=== PATIENT | female | born 1980 | race Caucasian/White ===

== ENCOUNTER 2021-02-07 08:08 | Outpatient (REF) | payer OTHER, SELFPAY ==
[2021-02-08 09:16] LABS: BV Int Neg Control Negative (Negative); BV Int Pos Control Positive (Positive)
[2021-02-08 09:28] LABS: CT PCR NOT DETECTED (Not Detect.); NG PCR NOT DETECTED (Not Detect.)
== END 2021-02-07 08:09 | disposition home or self-care (01) ==
LOC: HO.LAB 08:08
PROVIDERS: PCP Family Medicine; Visit Provider Advanced Practice Midwife
DX: Z01.419 Encounter for gynecological examination (general) (routine) without abnormal findings (principal); Z11.3 Encounter for screening for infections with a predominantly sexual mode of transmission; Z20.2 Contact with and (suspected) exposure to infections with a predominantly sexual mode of transmission; E66.9 Obesity, unspecified
CPT/HCPCS: 87480; 87491; 87510; 87591; 87660

== ENCOUNTER 2021-02-13 09:44 | Outpatient (REF) | payer OTHER, SELFPAY ==
[2021-02-13 11:43] LABS: Cholesterol 217 mg/dL; Glucose Fasting 83 mg/dL (60-99); HDL Cholesterol 59 mg/dL; LDL Cholesterol Calculated 145 mg/dl; Triglycerides 67 mg/dL
== END 2021-02-13 09:45 | disposition home or self-care (01) ==
LOC: HO.LAB 09:44
PROVIDERS: PCP Family Medicine; Visit Provider Family Medicine
DX: Z82.49 Family history of ischemic heart disease and other diseases of the circulatory system (principal)
CPT/HCPCS: 36415; 80061; 82947

== ENCOUNTER 2021-03-13 10:04 | Outpatient (REF) | payer OTHER, SELFPAY ==
--- NOTE | ~2021-03-13 | MM_ITS ---
EXAMINATION: MM SCREENING DIGITAL BREAST TOMOSYNTHESIS, BILATERAL CLINICAL INFORMATION: Screening. Asymptomatic. Age 40. No prior breast imaging. No known family history breast cancer. The lifetime risk of breast cancer based on the Tyrer-Cuzick Model is 13%. COMPARISON: None (current study represents initial baseline exam). TECHNIQUE: Digital breast tomosynthesis is performed in both the craniocaudal and mediolateral oblique views along with computer-aided detection (CAD). Synthesized 2D images are generated from the tomosynthesis. FINDINGS: There are scattered areas of fibroglandular density (ACR BI-RADS breast composition Category b). The left breast shows no mass or architectural abnormality. Neither breast shows abnormal calcifications. The bilateral axilla and skin contours are unremarkable. Right breast has subtle focal asymmetric density mid 8:00 position. Tomography may suggest oval contour, possibly a cyst. Patient will be recalled for additional imaging to fully characterize baseline appearance. MM/MM tomosynthesis screening BI IMPRESSION: 1. Right: Focal asymmetric density mid 8:00 position. 2. Left: No mammographic evidence of malignancy. ASSESSMENT: BI-RADS 0: Incomplete - Need Additional Imaging Evaluation RECOMMENDATION: 1. Additional views of the right breast for contours (3-D spot CC, 3-D spot ML). 2. Targeted ultrasound right breast. 3. Radiology department staff will contact the patient for additional imaging. This patient's information was entered into a reminder system with a target due date for their next mammogram.
== END 2021-03-13 10:05 | disposition home or self-care (01) ==
LOC: HO.MAMMO 10:04
PROVIDERS: PCP Family Medicine; Visit Provider Family Medicine
DX: Z12.31 Encounter for screening mammogram for malignant neoplasm of breast (principal)
CPT/HCPCS: 77063; 77067

== ENCOUNTER 2021-03-21 08:34 | Outpatient (REF) | payer OTHER, SELFPAY ==
--- NOTE | ~2021-03-21 | MM_ITS ---
EXAMINATION: MM DIAGNOSTIC DIGITAL BREAST TOMOSYNTHESIS, RIGHT US DIAGNOSTIC ULTRASOUND BREAST, RIGHT CLINICAL INFORMATION: Recall from new baseline exam for asymmetric density mid 8:00 right breast COMPARISON: Mammography: 03/13/2021 TECHNIQUE: Digital breast tomosynthesis is performed. 2D images are generated from the tomosynthesis. The following views are obtained: 3-D spot CC, 3-D spot ML Ultrasound right breast is targeted to the lower outer quadrant. Grayscale imaging and color Doppler are performed without and with harmonics. FINDINGS: There are scattered areas of fibroglandular density (ACR BI-RADS breast composition Category b). The additional views show no persistent asymmetric density or mass or architectural abnormality. Ultrasound demonstrates no cystic or solid mass or architectural abnormality. No focal duct ectasia. Results are discussed with the patient at time of visit. MM/MM tomosynthesis added views R IMPRESSION: Additional views show no persistent parenchymal asymmetry. Targeted ultrasound unremarkable. ASSESSMENT: BI-RADS 2: Benign RECOMMENDATION: Routine annual mammography screening. This patient's information was entered into a reminder system with a target due date for their next mammogram.
== END 2021-03-21 08:35 | disposition home or self-care (01) ==
LOC: HO.MAMMO 08:34
PROVIDERS: Visit Provider Family Medicine
DX: R92.2 Inconclusive mammogram (principal)
CPT/HCPCS: 76642; 77061; 77065

== ENCOUNTER 2022-03-17 11:40 | Outpatient (REF) | payer OTHER, SELFPAY ==
--- NOTE | ~2022-03-17 | MM_ITS ---
EXAMINATION: MM SCREENING DIGITAL BREAST TOMOSYNTHESIS, BILATERAL CLINICAL INFORMATION: Screening. Asymptomatic. The lifetime risk of breast cancer based on the Tyrer-Cuzick Model is 12%. COMPARISON: Mammography: 03/21/2021, 03/13/2021 (baseline); ultrasound right breast 03/21/2021. TECHNIQUE: Digital breast tomosynthesis is performed in both the craniocaudal and mediolateral oblique views along with computer-aided detection (CAD). Synthesized 2D images are generated from the tomosynthesis. FINDINGS: There are scattered areas of fibroglandular density (ACR BI-RADS breast composition Category b). There are no significant masses, abnormal calcifications, or other abnormalities. Parenchymal pattern is similar to prior studies. No developing density or interval architectural abnormality. The axilla and skin contours are unremarkable. MM/MM tomosynthesis screening BI IMPRESSION: No mammographic evidence of malignancy. ASSESSMENT: BI-RADS 1: Negative RECOMMENDATION: Routine annual mammography screening. This patient's information was entered into a reminder system with a target due date for their next mammogram.
== END 2022-03-17 11:41 | disposition home or self-care (01) ==
LOC: HO.MAMMO 11:40
PROVIDERS: Visit Provider Family Medicine
DX: Z12.31 Encounter for screening mammogram for malignant neoplasm of breast (principal)
CPT/HCPCS: 77063; 77067

== ENCOUNTER 2023-03-30 07:49 | Outpatient (REF) | payer OTHER, SELFPAY ==
--- NOTE | ~2023-03-30 | MM_ITS ---
EXAMINATION: MM SCREENING DIGITAL BREAST TOMOSYNTHESIS, BILATERAL CLINICAL INFORMATION: Screening. Asymptomatic. The lifetime risk of breast cancer based on the Tyrer-Cuzick Model is 12%. COMPARISON: Mammography: This study is compared with prior exams dating back to 2020. TECHNIQUE: Digital breast tomosynthesis is performed in both the craniocaudal and mediolateral oblique views along with computer-aided detection (CAD). Synthesized 2D images are generated from the tomosynthesis. FINDINGS: There are scattered areas of fibroglandular density (ACR BI-RADS breast composition Category b). There are no significant masses, abnormal calcifications, or other abnormalities. MM/MM tomosynthesis screening BI IMPRESSION: No mammographic evidence of malignancy. ASSESSMENT: BI-RADS BI-RADS 1 - Negative RECOMMENDATION: Routine annual mammography screening. 1 year F/U This examination should not preclude the clinical evaluation of a suspicious palpable abnormality. This patient's information was entered into a reminder system with a target due date for their next mammogram.
== END 2023-03-30 07:50 | disposition home or self-care (01) ==
LOC: HO.MAMMO 07:49
PROVIDERS: PCP Family Medicine; Visit Provider Family Medicine
DX: Z12.31 Encounter for screening mammogram for malignant neoplasm of breast (principal)
CPT/HCPCS: 77063; 77067

== ENCOUNTER → 2023-03-30 08:00 | Outpatient (BNV) | payer OTHER, SELFPAY | PROVIDERS: PCP Family Medicine; Visit Provider Radiology Diagnostic Radiology | DX: Z12.31 Encounter for screening mammogram for malignant neoplasm of breast (principal) | CPT/HCPCS: 77063; 77067 ==

== ENCOUNTER 2023-05-08 | Outpatient (REF) | payer OTHER, SELFPAY ==
[2023-05-14 04:13] LABS: HPV mRNA E6/E7 rflx Not Detected (Not Detected)
== END 2023-05-08 00:01 | disposition home or self-care (01) ==
LOC: HO.LNP
PROVIDERS: Visit Provider Advanced Practice Midwife
DX: Z01.419 Encounter for gynecological examination (general) (routine) without abnormal findings (principal)
CPT/HCPCS: 87624; 88142

== ENCOUNTER 2023-05-08 12:19 | Outpatient (AMB) | payer OTHER, SELFPAY ==
--- NOTE | 2023-05-08 12:56 | A.OFFVIS_ITS ---
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 She is sexually active with her partner but has 0 worries about STIs they use condoms for control. She recently had her mammogram she says that sometimes her blood pressure is up a little bit. She does have a primary care provider. [facility] Medical History (Updated 05/08/23 @ 13:42 by Emma [place] CNM) Asthma Family History (Updated 02/07/21 @ 08:44 by Dominick Smith CMA) Mother HTN (hypertension) Social History (Updated 02/07/21 @ 08:44 by Dominick Smith CMA) Alcohol intake: current Alcohol intake frequency: a few times a month Gender identity: Female Female Reproductive History Menstrual Age of Menarche: 9 Duration of menses: 3-5 days Date of last menstrual period: 04/17/23 control method: none Total pregnancies: 0 Date of last pap smear: 03/15/18 History of abnormal pap smear: No History of STI: No Date of Mammogram: 03/30/23 History of abnormal mammogram: Yes Physical Exam Vital Signs: Last Vital Signs BP 140/62 H 05/08/23 13:09 BMI result Body Mass Index 41.6 Const General: healthy appearing, comfortable, no acute distress, well developed and alert Nutritional Appearance: average body habitus Orientation/consciousness: patient oriented x3 Limitations: no limitations HEENT Head: Yes normocephalic Neck Neck: Yes normal visual inspection Chest Chest palpation & inspection: normal inspection of the chest Breast/axilla inspection: normal inspection of the breasts and normal inspection of the axillae Breast/axilla palpation: normal palpation of the breasts and normal palpation of the axillae Resp Effort & Inspection: normal respiratory effort GI Inspection: Yes normal to inspection, No Abdominal wall edema and No distended Palpation (GI): Soft to palpation and nontender Other: External exam within normal limits tiny inclusion cyst at labia minora on left side patient says that is always been there. Vagina pink and moist clear to white discharge within normal limits cervix nulliparous long thick closed mobile nontender uterus midposition nontender not enlarged good tone with Kegel and adnexa are not tender . General: Yes bladder normal to palpation External Female Exam: normal external appearance and normal appearance of the urethra Speculum Exam - Vagina: normal appearance of the vagina, normal palpation and normal vaginal discharge Speculum Exam - Cervix: normal appearance of the cervix, normal palpation and nontender Bimanual exam- vagina & uterus: normal bimanual exam, normal palpation, uterine size normal, bladder normal to palpation, consistency normal, normal palpation, uterine mobility normal, uterine shape normal, No Cervical tenderness present, non-tender and no cervical motion tenderness Bimanual Exam- Adnexa, other: normal adnexae, no masses, normal and No adnexal tenderness Neuro General: patient oriented x3 Results Reviewed Results Reviewed: Pap negative with negative HPV 2018 Assessment & Plan Assessment & Plan (1) Cervical cancer screening: Comment: always normal , last pap 02/2018, neg/ neg hpv. next due 03/20. Code(s): Z12.4 - Encounter for screening for malignant neoplasm of cervix (2) Well woman exam with routine gynecological exam: Code(s): Z01.419 - Encounter for gynecological examination (general) (routine) without abnormal findings (3) Obesity, morbid, BMI 40.0-49.9: Code(s): E66.01 - Morbid (severe) obesity due to excess calories Plan -----Discussed in this visit the following: healthy balanced diet, regular and consistent exercise, getting recommended health screens, doing the best she can for her particular health concerns, kegel exercises, pap smear screening and followup recommendations, mammography screening and SBE, normal changes in cycles in her life stage--- . Offered STI screening but she did not feel that was necessary.. 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 She is going to go home now and go to bed. Discussed considering finding time to prioritize her health and self-care and me time she is hoping to have a week off now between contracts and assignments and this will be good. She is contemplating a more local position in the near future. Orders: Orders Pap Smear Today Z01.419 - Encounter for gynecological examination (general) (routine) without abnormal findings, Z12.4 - Encounter for screening for malignant neoplasm of cervix Coding Level of Care Code Est Pt Prev Care 40-64y(64519) Diagnoses Cervical cancer screening Z12.4 Well woman exam with routine gynecological exam Z01.419 Obesity, morbid, BMI 40.0-49.9 E66.01
[2023-05-08 13:09] VITALS: BP 140/62; BMI 41.6
== END 2023-05-08 13:41 | disposition home or self-care (01) ==
LOC: HO.HWS 12:19
PROVIDERS: PCP Family Medicine; Visit Provider Advanced Practice Midwife
DX: Z12.4 Encounter for screening for malignant neoplasm of cervix (principal); Z01.419 Encounter for gynecological examination (general) (routine) without abnormal findings; E66.01 Morbid (severe) obesity due to excess calories
CPT/HCPCS: 99396

== ENCOUNTER → 2023-05-08 12:19 | Outpatient (BNVA) | payer OTHER, SELFPAY | PROVIDERS: PCP Family Medicine; Visit Provider Advanced Practice Midwife ==

== ENCOUNTER 2024-06-17 08:20 | Outpatient (REF) | payer BC, SELFPAY ==
--- NOTE | ~2024-06-17 | MM_ITS ---
EXAMINATION: MM SCREENING DIGITAL BREAST TOMOSYNTHESIS, BILATERAL CLINICAL INFORMATION: Screening. Asymptomatic. COMPARISON: Mammography: Comparison is made with available priors TECHNIQUE: Digital breast mammography with tomosynthesis is performed in both the craniocaudal and mediolateral oblique views along with computer-aided detection (CAD). FINDINGS: There are scattered areas of fibroglandular density (ACR BI-RADS breast composition Category b). There are no significant masses, abnormal calcifications, or other abnormalities. MM/MM tomosynthesis screening BI IMPRESSION: No mammographic evidence of malignancy. ASSESSMENT: BI-RADS BI-RADS 1 - Negative RECOMMENDATION: Routine annual mammography screening. 1 year F/U This examination should not preclude the clinical evaluation of a suspicious palpable abnormality. This patient's information was entered into a reminder system with a target due date for their next mammogram. Electronically signed by: Antonietta Villagomez DO 06/29/2024 12:03 PM EDT
== END 2024-06-17 08:21 | disposition home or self-care (01) ==
LOC: HO.MAMMO 08:20
PROVIDERS: PCP Family Medicine; Visit Provider Family Medicine
DX: Z12.31 Encounter for screening mammogram for malignant neoplasm of breast (principal)
CPT/HCPCS: 77063; 77067

== ENCOUNTER → 2024-06-17 08:30 | Outpatient (BNV) | payer BC, SELFPAY | PROVIDERS: PCP Family Medicine; Visit Provider Internal Medicine | DX: Z12.31 Encounter for screening mammogram for malignant neoplasm of breast (principal) | CPT/HCPCS: 77063; 77067 ==

== ENCOUNTER 2024-07-05 11:29 | Day surgery (SDC) | payer BC, SELFPAY ==
[2024-05-26 14:16] VITALS: BMI 42.1
--- NOTE | 2024-05-26 15:19 | P.CONAN_ITS ---
HPI - Anesthesia Eval Consult details Narrative: 44yo F for Colonoscopy PMFSH Active Problems Active Problems: All Active Problems Obesity, morbid, BMI 40.0-49.9 (Acute) Obesity (BMI 35.0-39.9 without comorbidity) (Acute) Potential exposure to STD (Acute) Cervical cancer screening (Acute) Well woman exam with routine gynecological exam (Acute) Past Medical History Medical History (Updated 05/26/23 @ 12:11 by Emma [place] CNM) Asthma Family History Family History (Updated 02/07/21 @ 08:44 by Dominick Smith CMA) Mother HTN (hypertension) Surgical History Surgical History (Updated 05/26/24 @ 14:14 by Dhara Harden RN) H/O wisdom tooth extraction Social History Social History Alcohol intake: current Alcohol intake frequency: a few times a month Gender identity: Female Meds Allergies Allergy/AdvReac Type Severity Reaction Status Date / Time Codeine Allergy Unknown rash Uncoded 02/07/21 08:42 Home Medications ?Medication ?Instructions ?Recorded ?Confirmed ?Last Taken ?Type No Known Home Meds 02/07/21 05/26/24 Unknown History Exam Height,Weight and Vital Signs: Height 5 ft 5 in Weight 114.759 kg Assessment and Plan Assessment Anesthesia Assessment: Chart Reviewed
--- NOTE | 2024-07-04 09:40 | HO.ANESPROP2 ---
Documented by User: Marisel Ramos NP 07/04/24 09:41 HPI - Anesthesia Eval Consult details Narrative: 44yo F for Colonoscopy PMFSH Active Problems Active Problems: All Active Problems Obesity, morbid, BMI 40.0-49.9 (Acute) Obesity (BMI 35.0-39.9 without comorbidity) (Acute) Potential exposure to STD (Acute) Cervical cancer screening (Acute) Well woman exam with routine gynecological exam (Acute) Past Medical History Medical History Asthma Family History Family History Mother HTN (hypertension) Surgical History Surgical History H/O wisdom tooth extraction Social History Social History Alcohol intake: current Alcohol intake frequency: a few times a month Patient Tobacco Use Status: Never used Tobacco Use of substances other than those prescribed or required for medical reasons: No Are you DNR?: No Advance Directives: No Advance Directives Information Provided: Yes Gender identity: Female Meds Allergies Allergy/AdvReac Type Severity Reaction Status Date / Time Codeine Allergy Unknown rash Uncoded 07/05/24 11:57 Home Medications ?Medication ?Instructions ?Recorded ?Confirmed ?Last Taken ?Type No Known Home Meds 02/07/21 05/26/24 Unknown History Exam Height,Weight and Vital Signs: Height 5 ft 5 in Weight 114.759 kg Assessment and Plan Assessment Anesthesia Assessment: Chart Reviewed Documented by User: Bina Mejia MD 07/05/24 12:45 PMFSH Past Medical History Medical History Asthma Family History Family History Mother HTN (hypertension) Family history of problems with anesthesia: No Surgical History Surgical History H/O wisdom tooth extraction History of Problems with Anesthesia: No Social History Social History Alcohol intake: current Alcohol intake frequency: a few times a month Patient Tobacco Use Status: Never used Tobacco Use of substances other than those prescribed or required for medical reasons: No Are you DNR?: No Advance Directives: No Advance Directives Information Provided: Yes Gender identity: Female Meds Allergies Allergy/AdvReac Type Severity Reaction Status Date / Time Codeine Allergy Unknown rash Uncoded 07/05/24 11:57 Home Medications ?Medication ?Instructions ?Recorded ?Confirmed ?Last Taken ?Type No Known Home Meds 02/07/21 05/26/24 Unknown History Exam Airway Mallampati Class: II TM Dist: >3cm Neck ROM: Full Heart: rrr Lungs: cta Assessment and Plan Assessment Anesthesia Assessment: Anesthesia Plan Discussed Final Anesthetic Review Family History of Problems with Anesthesia: No History of Problems with Anesthesia: No NPO: Yes ASA Class: III Final Preanesthetic Review: No Changes in Pt Med Stat, Meds/Allgs Chart Reviewed, Consent Obtained/Reviewed and Anes Risks/Benef Reviewed Patient Risk: Intermediate Procedure Risk: Low Anesthetic Plan Anesthetic Plan: MAC: Disposition: Standard PACU
[2024-07-05 11:57] VITALS: BMI 42.4
[2024-07-05 12:06] VITALS: BP 151/87; PULSE 75; RESP 16; TEMP 36.6; O2SAT 97
[2024-07-05 12:07] LABS: UPreg QC Valid YES; Urine Pregnancy NEGATIVE (NEGATIVE)
[2024-07-05] MEDS: Lactated Ringers 1,000 ML 100 ML IVCONT (12:31)
--- NOTE | 2024-07-05 13:04 | MHC.SHP ---
Pre-Procedural Eval Section A - 24 Hr Update-Section A only Date of Service: 07/05/24 Section B - Complete if H&P > 30 days Chief Complaint: Encounter for screening for malignant neoplasm of Details of Present Illness: see H&P no changes Relevant Family History (Specify if Yes): No Relevant Social History: None Present Medications: see Short Stay Collaborative assessment Medical History: No relevant PMH Allergies: Allergies Allergy/AdvReac Type Severity Reaction Status Date / Time Codeine Allergy Unknown rash Uncoded 07/05/24 11:57 Review of Systems Sugical H&P ROS: Negative: Constitution, Cardiovascular, Respiratory, Neurological, Psychiatric, Hem-Onc, Allergic/Immunologic, Gastrointestinal, Genitourinary, Musculoskeletal, Integumentary, Endocrine and Eyes/Ears/Nose/Throat Exam Surgical H&P Exam: Normal: HEENT, Normal: Heart, Normal: Lungs, Normal: Extremities, Normal: Abdomen, Normal: Skin and Normal: Neurological Plan Diagnosis/Plan: Unchanged I have reviewed the history and physical and performed a pertinent physical examination on my patient. No changes have occurred unless specified. Time Spent With Patient Time: Total time managing care of this patient today ____ minutes.
[2024-07-05 13:45] VITALS: BP 106/58; PULSE 66; RESP 16; TEMP 36.4; O2SAT 97
[2024-07-05 14:00] VITALS: BP 119/75; PULSE 71; RESP 16; O2SAT 98
--- NOTE | 2024-07-05 14:09 | OP_ITS ---
DATE OF SERVICE: 07/05/2024 SURGEON: Robinson Luis MD INDICATIONS: Colon cancer screening. PREOPERATIVE DIAGNOSIS: POSTOPERATIVE DIAGNOSIS: PROCEDURE PERFORMED: Colonoscopy to the terminal ileum. ESTIMATED BLOOD LOSS: COMPLICATIONS: ANESTHESIA: Monitored anesthesia care. ASSISTANTS: SPECIMENS: DESCRIPTION OF PROCEDURE: A history and physical was performed. The risks and benefits of the procedure were explained to the patient and informed consent was obtained. The patient was placed in the left lateral decubitus position. A digital rectal exam was performed and was found to be normal. The Olympus pediatric video colonoscope was introduced into the rectum and advanced to the cecum. The cecum was identified by transillumination, palpation, and identification of the ileocecal valve. Examination was performed and the scope was removed. She tolerated the procedure well and was returned to recovery area in stable condition. FINDINGS: The terminal ileum was examined and appeared normal. The visualized colonic mucosa was normal. The quality of the prep was good. No polyps were identified. Retroflexed examination was normal. IMPRESSION: Normal colonoscopy. RECOMMENDATIONS: 1. Follow up as needed. 2. Repeat colonoscopy is recommended in 10 years for average-risk individuals. MD MISAEL Montalvo/LUANL / [id number]
[2024-07-05 14:15] VITALS: BP 133/83; PULSE 69; RESP 16; TEMP 36.3; O2SAT 98
== END 2024-07-05 14:41 | disposition home or self-care (01) ==
PROVIDERS: Nurse Practitioner; PCP Family Medicine; Visit Provider Internal Medicine Gastroenterology
PROC: 0DJD8ZZ Inspection of Lower Intestinal Tract, Via Natural or Artificial Opening Endoscopic (ICD-10-PCS; CPT 45378; principal; 2024-07-05 13:20)
DX: Z12.11 Encounter for screening for malignant neoplasm of colon (principal); J45.909 Unspecified asthma, uncomplicated; Z88.5 Allergy status to narcotic agent
CPT/HCPCS: 45378; 81025; J2003; J2704

== ENCOUNTER 2024-11-25 10:33 | Outpatient (REF) | payer OTHER, SELFPAY ==
[2024-11-25 11:35] LABS: Estimated Average Glucose 108 mg/dL; Hemoglobin A1C 123.2319 umol/L; Hemoglobin A1c % 5.4 % (<6.0); Total Hemoglobin (HGBA1C) 3424.4352 umol/L
[2024-11-25 11:39] LABS: Cholesterol 199 mg/dL (<200); Glucose Fasting 90 mg/dL (60-99); HDL Cholesterol 64 mg/dL (>40); LDL Cholesterol Calculated 122 mg/dL (<100); Triglycerides 68 mg/dL (<150)
--- OUTSIDE RECORDS SUMMARY | 2024-11-25 12:07 | XMS_ITS ---
Author Organization [facility] Address [address] [place] [address] Care Team Providers Care Insole Taper Name Role Phone Justice Espinoza MD Primary Care Provider Unavailab Robinson Gar Jr Unavailable REASON FOR VISIT colon screening Encounters Encounter Location Date Provider Diagnosis [facility] [place] [address] [place], [place] [phone] 07/05/2024 Robinson Luis Jr Colon cancer screening Z12.11 ASSESSMENTS Encounter Date Diagnosis Assessment Notes Treatment Notes Treatment Clinical Notes 07/05/2024 Colon cancer screening (ICD-10 - Z12.11) PLAN OF TREATMENT No Information
--- OUTSIDE RECORDS SUMMARY | 2024-11-25 12:07 | XMS_ITS ---
Author Organization [facility] Address [address] [place] [address] Care Team Providers Care Acid Bath Mixer Name Role Phone Justice Espinoza MD Primary Care Provider Unavailab Robinson Gar Jr Unavailable REASON FOR VISIT screening Encounters Encounter Location Date Provider Diagnosis [facility] Outpatient [address] [place], [place] [phone] 08/09/2024 Robinson Luis Jr PLAN OF TREATMENT No Information
--- OUTSIDE RECORDS SUMMARY | 2024-11-25 12:07 | XMS_ITS ---
Author Organization [facility] Address [address] [place] [address] Care Team Providers Care Underground Mine Machinery Mechanic Name Role Phone Justice Espinoza MD Primary Care Provider Unavailab Robinson Gar Jr Unavailable [phone] REASON FOR VISIT screening Encounters Encounter Location Date Provider Diagnosis [facility] [place] [address] [place], [place] [phone] 07/19/2024 Robinson Luis Jr PLAN OF TREATMENT No Information
--- OUTSIDE RECORDS SUMMARY | 2024-11-25 12:07 | XMS_ITS | Patient Health Record ---
Author Organization [facility] Address [address] [place] [address] Care Team Providers Care Translational Specialist Name Role Phone Alexis CORTES, Justice Primary Care Provider UnavailRobinson Isbell Jr Unavailable ALLERGIES Allergen (clinical drug ingredient) Drug/Non Drug Allergy documented on EMR Reaction Allergy Type Onset Date Status codeine Codeine Unknown Drug Allergy Active RESULTS Component Value Reference Range Notes Ur Preg Test Reviewed date:07/05/2024 04:39:49 PM Interpretation: Performing Lab:[facility], [address] [place] [phone] Notes/Report: Urine NEGATIVE NEGATIVE This test was developed to detect early . False negative results may occur after the 5th - 7th week of when using this test method. If clinically indicated, consider a serum hCG. REASON FOR REFERRAL No Information MEDICATIONS Medication SIG (Take, Route, Frequency, Duration) Notes Start Date End Date Status MiraLax (colon prep) 17 GM/SCOOP mixed with Gatorade or Crystal Light Orally begin at 5:00 p.m. the day before the procedure for 1 day 12/30/2023 Active IMMUNIZATIONS Vaccine Route Administration Date Status Comme nts Influenza Unknown 07/21/2023 Administered SOCIAL HISTORY Tobacco Use: Social History Observation Description Date Details (start date - stop date) Never Smoker NA - NA Sex Assigned At : Social History Observation Description Sex Assigned At Unknown Tobacco Use/Smoking Question Answer Notes Patient is a nonsmoker Alcohol Screen Question Answer Notes Did you have a drink contain ing alcohol in the past year? Yes How often did you have a dri nk containing alcohol in the past year? 2 to 4 times a month (2 points) How many drinks did you have on a typical day when you were drinking in the past year? 1 or 2 drinks (0 point) How often did you have 6 or more drinks on one occasion in the past year? Never (0 point) Points 2 Interpretation Negative PROBLEMS Problem Type ICD Code Onset Dates Problem Status W/U Status Risk SNOMED Code Notes Problem Colon cancer screening (Z12.11) Active confirmed 575659717 Problem Encounter for other preprocedural examination (Z01.818) Active confirmed 377927808 VITAL SIGNS Temperature 99.2 degrees Fahrenheit 12/30/2023 Blood pressure diastolic 00 mm Hg 12/30/2023 Height 5 ft 5 in in 12/30/2023 Blood pressure systolic 000 mm Hg 12/30/2023 Weight 253 lb 5 oz lbs 12/30/2023 BMI 42.15 kg/m2 12/30/2023 Encounters Encounter Location Date Provider Diagnosis [facility] [place] [address] [place] [phone] 03/08/2024 Robinson Luis Jr [facility] [place] [address] [place], [place] [phone] 05/31/2024 Robinson Luis Jr [facility] [place] [address] [place], [place] [phone] 07/05/2024 Robinson Luis Jr Colon cancer screening Z12.11 [facility] [place] [address] [place] [phone] 07/19/2024 Robinson Luis Jr [facility] [place] [address] [place] [phone] 08/09/2024 Robinson Luis Jr [facility] [address] [place] [phone] 12/30/2023 Robinson Luis Jr Colon cancer screening Z12.11 and Encounter for other preprocedural examination Z01.818 [facility] [address] [place] [phone] 05/27/2024 Robinson Luis Jr [facility] [address] [place] [phone] 06/03/2024 Robinson Luis Jr [facility] [address] [place] [phone] 06/22/2024 Robinson Luis Jr ASSESSMENTS Encounter Date Diagnosis Assessment Notes Treatment Notes Treatment Clinical Notes 07/05/2024 Colon cancer screening (ICD-10 - Z12.11) 12/30/2023 Colon cancer screening (ICD-10 - Z12.11) 12/30/2023 Encounter for other preprocedural examination (ICD-10 - Z01.818) Colonoscopy material was printed PLAN OF TREATMENT Future Test Test Name Order Date COLONOSCOPY 12/30/2023 Insurance Providers Payer Name Payer Address Payer Phone Subscriber Number Group Number Insured Name Patient Relationship to Insured Coverage Start Date Coverage End Date [facility] [address] [place] [address] [id number] MERE ROBLES Self - patient is the insured MEDICAL (GENERAL) HISTORY Surgical History Surgery Date(Month/Year) wisdom tooth extraction 1995
== END 2024-11-25 10:34 | disposition home or self-care (01) ==
LOC: HO.10HDL 10:33
PROVIDERS: Visit Provider Family Medicine
DX: E78.00 Pure hypercholesterolemia, unspecified (principal); E66.9 Obesity, unspecified; Z13.1 Encounter for screening for diabetes mellitus; Z83.3 Family history of diabetes mellitus
CPT/HCPCS: 36415; 80061; 82947; 83036

== ENCOUNTER 2025-06-14 14:06 | Outpatient (REF) | payer OTHER, SELFPAY ==
[2025-06-14 17:27] LABS: Thyroid Stimulating Hormone 1.68 uIU/mL (0.32-4.0)
[2025-06-20 02:33] LABS: Vitamin D 25-OH, D2 <4 ng/mL; Vitamin D 25-OH, D3 19 ng/mL; Vitamin D 25-OH, Total 19 ng/mL (30-100)
== END 2025-06-14 14:07 | disposition home or self-care (01) ==
LOC: HO.LAB 14:06
PROVIDERS: PCP Physician Assistant; Visit Provider Advanced Practice Midwife
DX: Z01.419 Encounter for gynecological examination (general) (routine) without abnormal findings (principal); N93.9 Abnormal uterine and vaginal bleeding, unspecified; N95.1 Menopausal and female climacteric states; N92.1 Excessive and frequent menstruation with irregular cycle
CPT/HCPCS: 36415; 82306; 84443

== ENCOUNTER 2025-06-14 14:06 | Outpatient (AMB) | payer OTHER, SELFPAY ==
--- OUTSIDE RECORDS SUMMARY | 2024-03-08 03:30 | XMS_ITS ---
Author Organization [facility] Address [address] [place] [address] Care Team Providers Care Licensed Professional Counselor Name Role Phone Alexis (RETIRED) , Justice Primary Care Provider Robinson Belle Jr REASON FOR VISIT screening Encounters Encounter Location Date Provider Diagnosis [facility] [place] Outpatient [address] [place], [place] [id number] 03/08/2024 Robinson Luis Jr Plan Of Treatment No Information Progress Notes * MERE ROBLES RDOB:1980 (45 yo F)Acc No.[id number]:03/08/2024 COLON WITH MAC Patient: MERE GUILLAUME Provider: Juhi Luis MD :1980 A ge:43 Y S ex:Female Date:03/08/2024 Address:[facility] [place] [facility] Pcp:Justice Espinoza (RETIRED) MD Subjective: * Chief Complaints: * 1 . Screening. * Medical History: Objective: * Vitals: Assessment: Plan: * Treatment: * * The named appointment provid er may or may not be the originator of this progress note, and it is not deemed complete until electronically signed by the appointment provider. Sign off status: Pending * Provider: Juhi Luis MD Date: 03/08/2024 Generated for Printi ng/Faxing/eTransmitting on: 0 06/14/2025 05:51 PM EDT
--- OUTSIDE RECORDS SUMMARY | 2024-05-31 03:30 | XMS_ITS ---
Author Organization [facility] Address [address] [place] [address] Care Team Providers Care Emergency Department Rn Name Role Phone Alexis (RETIRED) , Justice Primary Care Provider Robinson Belle Jr REASON FOR VISIT screening Encounters Encounter Location Date Provider Diagnosis [facility] [address] [facility] [place] [phone] 05/31/2024 Robinson uLis Jr Plan Of Treatment No Information Progress Notes * MERE ROBLES RDOB:1980 (45 yo F)Acc No.[id number]:05/31/2024 COLON WITH MAC Patient: MERE GUILLAUME Provider: Juhi Luis MD :1980 A ge:44 Y S ex:Female Date:05/31/2024 Address:[facility] [place] [facility] Pcp:Justice Espinoza (RETIRED) MD Subjective: * Chief Complaints: * 1 . Screening. * Medical History: Objective: * Vitals: Assessment: Plan: * Treatment: * * The named appointment provid er may or may not be the originator of this progress note, and it is not deemed complete until electronically signed by the appointment provider. Sign off status: Pending * Provider: Juhi Luis MD Date: 05/31/2024 Generated for Printi ng/Faxing/eTransmitting on: 06/14/2025 05:51 PM EDT
--- OUTSIDE RECORDS SUMMARY | 2024-07-05 09:20 | XMS_ITS ---
Author Organization [facility] Address [address] [place] [address] Care Team Providers Care Metal Fabricator Name Role Phone Alexis (RETIRED) , Justice Primary Care Provider Unavailable Robinson Luis Jr Unavailable REASON FOR VISIT colon screening Encounters Encounter Location Date Provider Diagnosis [facility] [address] [place] [phone] 07/05/2024 Robinson Luis Jr Colon cancer screening Z12.11 Assessments Encounter Date Diagnosis (ICD Code) Assessment Notes Treatment Notes Treatment Clinical Notes Section Notes 07/05/2024 Colon cancer screening (ICD-10 - Z12.11) Plan Of Treatment No Information Progress Notes * MERE ROBLES RDOB:1980 (45 yo F)Acc No.[id number]:07/05/2024 COLON WITH MAC Patient: MERE GUILLAUME Provider: Juhi Luis MD :1980 A ge:44 Y S ex:Female Date:07/05/2024 Address:[facility] [id number] Pcp:Justice Espinoza (RETIRED) MD Subjective: * Chief [...] Date: 1 Generated for Yonas lugo/Bri/Arun on: 0 06/14/2025 05:51 PM EDT
--- OUTSIDE RECORDS SUMMARY | 2024-07-19 08:40 | XMS_ITS ---
Author Organization [facility] Address [address] [place] [address] Care Team Providers Care Lime Kiln And Recausticizing Operator Name Role Phone Alexis (RETIRED) , Justice Primary Care Provider Robinson Belle Jr REASON FOR VISIT screening Encounters Encounter Location Date Provider Diagnosis [facility] Out[place] [address] [place], [place] [phone] 07/19/2024 Robinson Luis Jr Plan Of Treatment No Information Progress Notes * MERE ROBLES RDOB:1980 (45 yo F)Acc No.[id number]:07/19/2024 COLON WITH MAC Patient: MERE GUILLAUME Provider: Juhi Luis MD :1980 A ge:44 Y S ex:Female Date:07/19/2024 Address:[facility] Alessia MCCALLUM [facility] Pcp:Justice Espinoza (RETIRED) MD Subjective: * Chief [...] Juhi Luis MD Date: 1 Generated for Printi ng/Faxing/eTransmitting on: 0 06/14/2025 05:51 PM EDT
--- OUTSIDE RECORDS SUMMARY | 2024-08-09 04:30 | XMS_ITS ---
Author Organization [facility] Address [address] [place] [address] Care Team Providers Care Sunday School Missionary Name Role Phone Alexis (RETIRED) , Justice Primary Care Provider Robinson Belle Jr REASON FOR VISIT screening Encounters Encounter Location Date Provider Diagnosis [facility] Outpatient [address] [place], [place] [phone] 08/09/2024 Robinson Luis Jr Plan Of Treatment No Information Progress Notes * MERE ROBLES RDOB:1980 (45 yo F)Acc No.[id number]:08/09/2024 COLON WITH MAC Patient: MERE GUILLAUME Provider: Juhi Luis MD :1980 A ge:44 Y S ex:Female Date:08/09/2024 Address:[facility] Alessia MCCALLUM [facility] Pcp:Justice Espinoza (RETIRED) MD Subjective: * Chief Complaints: * 1 . Screening. * Medical History: Objective: * Vitals: Assessment: Plan: * Treatment: * * The named appointment provid er may or may not be the originator of this progress note, and it is not deemed complete until electronically signed by the appointment provider. Sign off status: Pending * Provider: Juhi Luis MD Date: 10/09/2023 Generated for Printi ng/Faxing/eTransmitting on: 0 06/14/2025 05:51 PM EDT
--- NOTE | 2025-06-14 14:16 | A.OFFVIS_ITS ---
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 Recruiting Assistant concerns: She is concerned about perimenopausal including brain fog, weight gain, fatigue, irritability, vertigo, bloating, gas, and urge incontinence. Regular monthly menses, short intense cycles lasting 3 days heavy with clots. Currently is not sexually active with spouse over the last year. She denies vaginal itching or irritation. STI screening offered; she accepts. She tries to eat healthy and stays active with exercise-walking daily and uses a Peloton when. Denies family history of breast, ovarian or colon cancer. Last pap smear 2022, negative. Mammogram: 2023. Next mammogram scheduled 06/19/2025. [facility] Medical History (Updated 06/14/25 @ 16:00 by Ashley Velazquez CNM) Perimenopause Abnormal uterine bleeding (AUB) Fatigue Asthma Surgical History H/O wisdom tooth extraction Family History Mother HTN (hypertension) Social History Alcohol intake: current Alcohol intake frequency: a few times a month Patient Tobacco Use Status: Never used Tobacco Gender identity: Female Female Reproductive History Menstrual Age of Menarche: 9 Duration of menses: 3-5 days Date of last menstrual period: 06/02/25 control method: none Total pregnancies: 0 Date of last pap smear: 05/08/23 (negative papsmear,negative hpv ) Date of Mammogram: 06/17/24 (bi rad 1) Review of Systems Const All systems reviewed & are unremarkable except as noted in HPI and below Reports as per HPI Eyes Reports no additional complaints ENT Reports no additional complaints Card Reports no additional complaints Resp Reports no additional complaints GI Reports as per HPI and Reports no additional complaints Reports as per HPI Musc Reports no additional complaints Skin/Breast Reports as per HPI Neuro Reports no additional complaints Psych Reports no additional complaints Endo Reports no additional complaints Jose A/Lymph Reports no additional complaints Aller/Immun Reports no additional complaints Physical Exam Vital Signs: Last Vital Signs BP 128/82 06/14/25 14:29 BMI result Body Mass Index 44.8 Const General: cooperative, healthy appearing, no acute distress, well developed and alert Orientation/consciousness: patient oriented x3 HEENT Head: Yes normal to inspection Eyes General: appearance normal, both eyes and all related structures Neck Neck: Yes normal visual inspection Thyroid: Thyroid normal Chest Chest palpation & inspection: normal inspection of the chest and other (no puckering, dimpling, peau de orange, retraction, discharge, masses) Breast/axilla inspection: normal inspection of the breasts Breast/axilla palpation: normal palpation of the breasts Resp Effort & Inspection: normal respiratory effort GI Inspection: Yes normal to inspection Palpation (GI): Soft to palpation Rectal Exam - Female: deferred General: Yes bladder normal to palpation External Female Exam: normal external appearance and normal appearance of the urethra Speculum Exam - Vagina: normal appearance of the vagina, normal palpation and normal vaginal discharge Speculum Exam - Cervix: normal appearance of the cervix and normal palpation Bimanual exam- vagina & uterus: normal bimanual exam, normal palpation, uterine size normal, bladder normal to palpation, normal palpation and non-tender Bimanual Exam- Adnexa, other: no masses Skin General skin exam: no rashes or lesions noted Rashes: no rashes Neuro General: patient oriented x3 Cognition (Neuro): normal cognition Extrem General: Yes normal to inspection Psych Attitude: cooperative Thought process: Normal thought process present Assessment & Plan Assessment & Plan (1) Fatigue: Code(s): R53.83 - Other fatigue Category: Medical Qualifiers: Fatigue type: other Qualified Code(s): R53.83 - Other fatigue (2) Well woman exam with routine gynecological exam: Code(s): Z01.419 - Encounter for gynecological examination (general) (routine) without abnormal findings Category: Medical Plan: Discussed: Current recommendations for pap smears per ASCCP guidelines. Breast awareness and periodic breast exams. Mammogram yearly. Maintain a healthy lifestyle including a well balanced diet and routine exercise. Patient verbalizes understanding and agrees to the plan of care. She was given opportunity to ask questions and all questions were answered to the best of my ability. RTO in one year for annual clinical pharmacy technician examination. This note is constructed using voice recognition software. While every effort has been made to ensure accuracy, vice president network development errors may have been included. (3) Abnormal uterine bleeding (AUB): Code(s): N93.9 - Abnormal uterine and vaginal bleeding, unspecified Category: Medical Plan: Workup for AUB to include pelvic ultrasound, lab work, cervical cultures, Pap smear, endometrial biopsy. Follow up for endometrial biopsy procedure with ultrasound review, counseled regarding anticipatory guidance advised to take 3 ibuprofen with food and fluids 1 hour before her appointment time. Purpose of the endometrial biopsy would be to rule out any abnormal tissues found within the endometrium to include atypia, hyperplasia, precancer or cancer. The patient expressed understanding and agreement with the plan of care. All of her questions and concerns were addressed to the best of my ability. (4) Perimenopause: Code(s): N95.1 - Menopausal and female climacteric states Category: Medical Plan: Perimenopause versus menopause changes, information on menopause provided with a literature in Internet website references. The patient expressed understanding and agreement with the plan of care. All of her questions and concerns were a ddressed to the best of my ability. Plan Total time I personally spent on visit and management today: ?25 minutes. Time spent included review of pertinent office notes in the electronic health record; review of laboratory and imaging results; review of personal family medical history; performing physical exam; discussing diagnosis and plan of care with the patient; documenting the encounter in the EMR. This note is constructed using voice recognition software. While every effort has been made to ensure accuracy, vice president network development errors may have been included. Orders: Orders Vitamin D 25-OH (D2 and D3) 06/14/25 R53.83 - Other fatigue Bacterial Vaginosis Panel 06/14/25 N93.9 - Abnormal uterine and vaginal bleeding, unspecified CT NG by PCR Vag/Cerv 06/14/25 N93.9 - Abnormal uterine and vaginal bleeding, unspecified Thyroid Stimulating Hormone 06/14/25 N92.1 - Excessive and frequent menstruation with irregular cycle, R53.83 - Other fatigue HPV High risk Today Z01.419 - Encounter for gynecological examination (general) (routine) without abnormal findings Pap Smear 06/14/25 Z01.419 - Encounter for gynecological examination (general) (routine) without abnormal findings Coding Level of Care Code New Pt Level 2 (13224) Est Pt Prev Care 40-64y(31712) Diagnoses Other fatigue R53.83 Fatigue type: other Well woman exam with routine gynecological exam Z01.419 Abnormal uterine bleeding (AUB) N93.9 Perimenopause N95.1
[2025-06-14 14:29] VITALS: BP 128/82; BMI 44.8
--- OUTSIDE RECORDS SUMMARY | 2025-06-14 17:51 | XMS_ITS | Patient Health Record ---
Author Organization [facility] Address [address] [place] [address] Care Team Providers Care Superior Court Clerk Name Role Phone Alexis (RETIRED) Justice CORTES Primary Care Provider Unavailable Robinson Luis Jr Unavailable [phone] Allergies Allergen (clinical drug ingredient) Drug/Non Drug Allergy documented on EMR Reaction Allergy Type Onset Date Status codeine Codeine Unknown Drug Allergy Active Results Component Value Reference Range Notes Ur Preg Test Reviewed date:07/05/2024 04:39:49 PM Interpretation: Performing Lab:[facility], [address] [place] [phone] Notes/Report: Urine NEGATIVE NEGATIVE This test was developed to detect early . False negative results may occur after the 5th - 7th week of when using this test method. If clinically indicated, consider a serum hCG. Reason For Referral No Information Medications Medication SIG (Take, Route, Frequency, Duration) Notes Start Date End Date Status MiraLax (colon prep) 17 GM/SCOOP mixed with Gatorade or Crystal Light Orally begin at 5:00 p.m. the day before the procedure for 1 day 12/30/2023 Active Immunizations Vaccine Route Administration Date Status Comme nts Influenza Unknown 07/21/2023 Administered Social History Tobacco Use: Social History Observation Description Date Details (start date - stop date) Never Smoker NA - NA Tobacco Use/Smoking Question Answer Notes Patient is [...] Never (0 point) Points 2 Interpretation Negative Problems Problem Type SNOMED Code ICD Code Onset Dates Problem Status W/U Status Risk Notes Problem [id number] Colon cancer screening (Z12.11) Active confirmed Problem 988915890 Encounter for other preprocedural examination (Z01.818) Active confirmed Encounters Encounter Location Date Provider Diagnosis [facility] [place] [address] [place], [place] [phone] 07/05/2024 Robinson Luis Jr Colon cancer screening Z12.11 [facility] [address] [place] [address] 06/22/2024 Robinson Luis Jr Assessments Encounter Date Diagnosis (ICD Code) Assessment Notes Treatment Notes Treatment Clinical Notes Section Notes 07/05/2024 Colon cancer screening (ICD-10 - Z12.11) Plan Of Treatment Future Test Test Name Order Date COLONOSCOPY 12/30/2023 Insurance Providers Payer Name Payer Address Payer Phone Subscriber Number Group Number Insured Name Patient Relationship to Insured Coverage Start Date Coverage End Date [facility] [address] [place] [address] [phone] [id number] MERE ROBLES Self - patient is the insured Medical (General) History Surgical History Surgery Date(Month/Year) wisdom tooth extraction 1995
--- OUTSIDE RECORDS SUMMARY | 2025-06-14 17:51 | XMS_ITS | Clinical Summary ---
Author Organization [facility] Address [address] [place] [id number] Phone Care Team Providers Care Reservoir Caretaker Name Role Phone Unknown, Unknown Primary Care Provider Unavai lable Allergies Active Allergy Reactions Criticality Noted Date Comments Codeine 11/22/2021 Iodinated Contrast Media 11/23/2021 Pt reports allergic reaction from childhood after receiving contrast dye for CT imaging Shellfish Containing Products 11/23/2021 Pt reports allergy from childhood, does not recall specific reaction Medications No known medications Active Problems No known active problems Immunizations Immunization Administration Dates Next Due COVID-19 (Pre-07/20) Moderna Vaccine, mRNA, PF 08/28/2021,11/01/2020,10/02/2020 Influenza, Unspecified Formulation 06/16,07/25/2021,05/31/2020,2019 Social History Tobacco Use Types Packs/Day Years Used Date Smoking Tobacco: Never Assessed Education Answer Date Recorded Are you interested in more education? Not on harpal e 01/23/2023 Are you concerned about learning? Not on file 01/23/2023 No 01/23/2023 No 01/23/2023 Digital Access Answer Date Recorded No 02/21/2023 No 02/21/2023 Reliable internet access at home? Not on file 02/21/2023 Device with a working camera? Not on file Comments Unknown Sex and Gender Information Value Date Recorded Sex Assigned at Not on file Legal Sex Female 10:45 AM EDT Gender Identity Not on file Sexual Orientation Not on file Last Filed Vital Signs Vital Sign Reading Time Taken Comments Blood Pressure 141/87 05/05/2022 1:52 AM EDT Pulse 68 05/05/2022 1:52 AM EDT Temperature 36.8 C (98.2 F) 05/05/2022 1:52 AM EDT Respiratory Rate 18 05/05/2022 1:52 AM EDT Oxygen Saturation 97% 05/05/2022 1:52 AM EDT Inhaled Oxygen Concentration - - Weight 90.7 kg (200 lb) 05/05/2022 1:52 AM EDT Height 167.6 cm (5' 6 ) 05/05/2022 1:52 AM EDT Body Mass Index 32.28 05/05/2022 1:52 AM EDT Plan of Treatment Health Maintenance Due Date Last Done Comments Adult Td,Tdap Booster 1978 LIPID PANEL 1978 DEPRESSION SCREENING 1990 SMOKING Hx and SMOKELESS TOBACCO SCREENING 1991 HEPATITIS C SCREENING 1996 HIV ONE-TIME SCREENING (18-65 YEARS) 1996 PAP SMEAR 1999 MAMMOGRAM 2018 COLOGUARD 2023 COLONOSCOPY 2023 COLORECTAL CANCER SCREENING 2023 FIT TEST 2023 FOBT 2023 SIGMOIDOSCOPY 2023 VIRTUAL COLONOSCOPY 2023 INFLUENZA VACCINE (#1) 2025 3, 07/25/2021, 05/31/2020, Additional history exists COVID-19 VACCINE ( season) 2025 08/28/2021, 08/28/2021, 11/01/2020, Additional history exists HEPATITIS A VACCINES Aged Out No long er eligible based on patient's age to complete this topic HIB VACCINES Aged Out No longer eligi ble based on patient's age to complete this topic MENINGOCOCCAL VACCINES (ACWY) Aged Out No longer eligible based on patient's age to complete this topic MENINGOCOCCAL VACCINES (B) Aged Out N o longer eligible based on patient's age to complete this topic PNEUMOCOCCAL VACCINES (0-49 years) Aged Out No longer eligible based on patient's age to complete this topic Medical Devices Not on file Insurance [facility] PPO [facility] PPO [facility] INSURANCE Care Teams Reservoir Caretaker Relationship Specialty Start Date End Date Unknown, Unknown, PCP - General 09/12/20 Additional Source Comments The information contained in this document represents components of the legal health record. It is not the complete legal health record.[facility]
--- OUTSIDE RECORDS SUMMARY | 2025-06-14 17:51 | XMS_ITS | Encounter Summary ---
Author Organization [facility] Address [address] [address] Phone Care Team Providers Care Equity Sales Assistant Name Role Phone Unknown, Unknown Primary Care Provider Zen serra Encounter Details Date Type Department Care Team (Late st Contact Info) Description 11/23/2021 Procedure [facility] [address] [place] [address] Social History Tobacco Use Types Packs/Day Years Used Date Smoking Tobacco: Never Assessed Comments Unknown Sex and Gender Information Value Date Recorded Sex Assigned at Not on file Legal Sex Female 10:45 AM EDT Gender Identity Not on file Sexual Orientation Not on file documented as of this encounter Plan of Treatment Not on file documented as of this encounter Visit Diagnoses Not on filedocumented in this encounter Care Teams Equity Sales Assistant Relationship Specialty Start Date End Date Unknown, Unknown, PCP - General 09/12/20 documented as of this encounter Additional Source Comments The information contained in this document represents components of the legal health record. It is not the complete legal health record.[facility]
== END 2025-06-15 08:40 | disposition home or self-care (01) ==
LOC: HO.HWS 14:06
PROVIDERS: PCP Physician Assistant; Visit Provider Advanced Practice Midwife
DX: Z01.419 Encounter for gynecological examination (general) (routine) without abnormal findings (principal); R53.83 Other fatigue; N93.9 Abnormal uterine and vaginal bleeding, unspecified; N95.1 Menopausal and female climacteric states
CPT/HCPCS: 99202; 99213; 99396; 99459

== ENCOUNTER 2025-06-14 15:16 | Outpatient (REF) | payer OTHER, SELFPAY ==
[2025-06-15 08:42] LABS: Bacterial Vaginosis PCR NEGATIVE (Negative); Candida Group PCR NOT DETECTED (Not Detect); Candida glab krusei PCR NOT DETECTED (Not Detect); Trichomonas vaginalis PCR NOT DETECTED (Not Detect)
[2025-06-15 09:14] LABS: CT PCR NOT DETECTED (Not Detect.); NG PCR NOT DETECTED (Not Detect.)
== END 2025-06-14 15:17 | disposition home or self-care (01) ==
LOC: HO.LNP 15:16
PROVIDERS: Visit Provider Advanced Practice Midwife
DX: Z01.419 Encounter for gynecological examination (general) (routine) without abnormal findings (principal); Z11.51 Encounter for screening for human papillomavirus (HPV); Z11.8 Encounter for screening for other infectious and parasitic diseases; N93.9 Abnormal uterine and vaginal bleeding, unspecified
CPT/HCPCS: 81515; 87491; 87591; 87626; 88175

== ENCOUNTER 2025-07-27 11:51 | Outpatient (REF) | payer OTHER, SELFPAY ==
--- OUTSIDE RECORDS SUMMARY | 2024-03-08 03:30 | XMS_ITS ---
Author Organization [facility] Address [address] [place] [address] Care Team Providers Care Datawarehouse Developer Name Role Phone Alexis (RETIRED) , Justice Primary Care Provider Robinson Belle Jr REASON FOR VISIT screening Encounters Encounter Location Date Provider Diagnosis [facility] Outpatient [address] [place], [place] [id number] 03/08/2024 Robinson Luis Jr Plan Of Treatment No Information Progress Notes * MERE ROBLES RDOB:1980 (45 yo F)Acc No.[id number]:03/08/2024 COLON WITH MAC Patient: MERE GUILLAUME Provider: Juhi Luis MD :1980 A ge:43 Y S ex:Female Date:03/08/2024 Address:[facility] [address] [address] [id number] Pcp:Justice Espinoza (RETIRED) MD Subjective: * Chief Complaints: * 1 . Screening. * Medical History: Objective: * Vitals: Assessment: Plan: * Treatment: * * The named appointment provid er may or may not be the originator of this progress note, and it is not deemed complete until electronically signed by the appointment provider. Sign off status: Pending * Provider: Juhi Luis MD Date: 0 03/08/2024 Generated for Printi ng/Faxing/eTransmitting on: 1 02:53 PM EDT
--- OUTSIDE RECORDS SUMMARY | 2024-05-31 03:30 | XMS_ITS ---
Author Organization [facility] Address [address] [place] [address] Care Team Providers Care Freight Checker Name Role Phone Alexis (RETIRED) , Justice Primary Care Provider Robinson Belle Jr REASON FOR VISIT screening Encounters Encounter Location Date Provider Diagnosis [facility] [place] [address] [facility] [place] [id number] 05/31/2024 Robinson Luis Jr Plan Of Treatment No Information Progress Notes * MERE ROBLES RDOB:1980 (45 yo F)Acc No.[id number]:05/31/2024 COLON WITH MAC Patient: MERE GUILLAUME Provider: Juhi Luis MD :1980 A ge:44 Y S ex:Female Date:05/31/2024 Address:[facility] [place] [facility] Pcp:Justice Espinoza (RETIRED) MD Subjective: * Chief [...] * Provider: Juhi Luis MD Date: 0 05/31/2024 Generated for Printi ng/Faxing/eTransmitting on: 02:53 PM EDT
--- OUTSIDE RECORDS SUMMARY | 2024-07-05 09:20 | XMS_ITS ---
Author Organization [facility] Address [address] [place] [address] Care Team Providers Care Windows Server Specialist Name Role Phone Alexis (RETIRED) Justice CORTES Primary Care Provider Unavailable Robinson Luis Jr Unavailable [phone] REASON FOR VISIT colon screening Encounters Encounter Location Date Provider Diagnosis [facility] [place] [address] [place] [phone] 07/05/2024 Robinson Luis Jr Colon cancer screening Z12.11 Assessments Encounter Date Diagnosis (ICD Code) Assessment Notes Treatment Notes Treatment Clinical Notes Section Notes 07/05/2024 Colon cancer screening (ICD-10 - Z12.11) Plan Of Treatment No Information Progress Notes * MERE ROBLES RDOB:1980 (45 yo F)Acc No.[id number]:07/05/2024 COLON WITH MAC Patient: MERE GUILLAUME Provider: Juhi Luis MD :1980 A ge:44 Y S ex:Female Date:07/05/2024 Address:[facility] [id number] Pcp:Justice Espinoza (RETIRED) MD Subjective: * Chief Complaints: * 1 . Colon screening. * Medical History: Objective: * Vitals: Assessment: * Assessment: 1. C olon cancer screening - Z12.11 (Primary) Plan: * Treatment: * Procedure Codes: 4 5378 DIAGNOSTIC COLONOSCOPY * * The named appointment provid er may or may not be the originator of this progress note, and it is not deemed complete until electronically signed by the appointment provider. Sign off status: Pending * Provider: Juhi Luis MD Date: 1 Generated for Yonas lugo/Bri/Arun on: 02:52 PM EDT
--- OUTSIDE RECORDS SUMMARY | 2024-07-19 08:40 | XMS_ITS ---
Author Organization [facility] Address [address] [place] [address] Care Team Providers Care Zanjero Name Role Phone Alexis (RETIRED) , Justice Primary Care Provider Robinson Belle Jr REASON FOR VISIT screening Encounters Encounter Location Date Provider Diagnosis [facility] Outpatient [address] [place], [place] [phone] 07/19/2024 Robinson Luis Jr Plan Of Treatment No Information Progress Notes * MERE ROBLES RDOB:1980 (45 yo F)Acc No.[id number]:07/19/2024 COLON WITH MAC Patient: MERE GUILLAUME Provider: Juhi Luis MD :1980 A ge:44 Y S ex:Female Date:07/19/2024 Address:[facility] Alessia MCCALLUM [facility] Pcp:Justice Espinoza (RETIRED) MD Subjective: * Chief Complaints: * 1 . Screening. * Medical History: Objective: * Vitals: Assessment: Plan: * Treatment: * * The named appointment provid er may or may not be the originator of this progress note, and it is not deemed complete until electronically signed by the appointment provider. Sign off status: Pending * Provider: Juhi Luis MD Date: Generated for Printi ng/Faxing/eTransmitting on: 02:52 PM EDT
--- OUTSIDE RECORDS SUMMARY | 2024-08-09 04:30 | XMS_ITS ---
Author Organization [facility] Address [address] [place] [address] Care Team Providers Care Tube Builder Airplane Name Role Phone Alexis (RETIRED) , Justice Primary Care Provider Robinson Belle Jr [phone] REASON FOR VISIT screening Encounters Encounter Location Date Provider Diagnosis [facility] [place] [address] [place], [place] [phone] 08/09/2024 Robinson Luis Jr Plan Of Treatment No Information Progress Notes * MERE ROBLES RDOB:1980 (45 yo F)Acc No.[id number]:08/09/2024 COLON WITH MAC Patient: MERE GUILLAUME Provider: Juhi Luis MD :1980 A ge:44 Y S ex:Female Date:08/09/2024 Address:[facility] Alessia MCCALLUM [facility] Pcp:Justice Espinoza (RETIRED) MD Subjective: * Chief [...] Date: 10/09/2023 Generated for Printi ng/Faxing/eTransmitting on: 02:53 PM EDT
--- OUTSIDE RECORDS SUMMARY | 2025-07-27 14:53 | XMS_ITS | Encounter Summary ---
Author Organization [facility] Address [address] [address] Phone Care Team Providers Care Electrical Accessories Ii Assembler Name Role Phone Unknown, Unknown Primary Care Provider Zen serra Encounter Details Date Type Department Care Team (Late st Contact Info) Description 11/23/2021 Procedure [facility] [address] [place] [address] Social History Tobacco Use Types Packs/Day Years [...] on filedocumented in this encounter Care Teams Electrical Accessories Ii Assembler Relationship Specialty Start Date End Date Unknown, Unknown, PCP - General 09/12/20 documented as of this encounter Additional Source Comments The information contained in this document represents components of the legal health record. It is not the complete legal health record.[facility]
--- OUTSIDE RECORDS SUMMARY | 2025-07-27 14:53 | XMS_ITS | Patient Health Record ---
Author Organization [facility] Address [address] [place] [address] Care Team Providers Care C Software Developer Name Role Phone Alexis (RETIRED) Justice CORTES Primary Care Provider Unavailable Robinson Luis Jr Unavailable Allergies Allergen (clinical drug ingredient) Drug/Non Drug Allergy documented on EMR Reaction Allergy Type Onset Date Status codeine Codeine Unknown Drug Allergy Active Reason For Referral No Information Medications Medication SIG (Take, Route, Frequency, Duration) Notes Start Date End Date Status MiraLax (colon prep) 17 GM/SCOOP mixed with Gatorade or Crystal Light Orally begin at 5:00 p.m. the day before the procedure; Duration: 1 day 12/30/2023 Active Immunizations Vaccine Route [...] Problem Status W/U Status Risk Notes Problem Colon cancer screening (823202273) Colon cancer screening (Z12.11) Active confirmed Problem Pre-procedure evaluation check (579076057) Encounter for other preprocedural examination (Z01.818) Active confirmed Plan Of Treatment Future Test Test Name Order Date COLONOSCOPY 12/30/2023 Insurance Providers Payer Name Payer Address Payer Phone Subscriber Number Group Number Insured Name Patient Relationship to Insured Coverage Start Date Coverage End Date [facility] [address] [place] [address] [id number] MERE ROBLES Self - patient is the insured Medical (General) History Surgical History Surgery Date(Month/Year) wisdom tooth extraction 1995
--- OUTSIDE RECORDS SUMMARY | 2025-07-27 14:54 | XMS_ITS | Clinical Summary ---
Author Organization [facility] Address [address] [place] [id number] Phone Care Team Providers Care Manufactured Buildings Repairer Name Role Phone Unknown, Unknown Primary Care [...] topic Medical Devices Not on file Insurance [employer] PPO UNITED PPO UNITED PPO [employer] PPO [place] ([place]) [address], [place] [id number] [place] P[place] [facility] [address] [place] [address] [facility] [employer] Care Teams Manufactured Buildings Repairer Relationship Specialty Start Date End Date Unknown, Unknown, PCP - General 09/12/20 Additional Source Comments The information contained in this document represents components of the legal health record. It is not the complete legal health record.[facility]
== END 2025-07-27 11:52 | disposition home or self-care (01) ==
LOC: HO.MAMMO 11:51
PROVIDERS: PCP Physician Assistant; Visit Provider Physician Assistant
DX: Z12.31 Encounter for screening mammogram for malignant neoplasm of breast (principal)
CPT/HCPCS: 77063; 77067

== ENCOUNTER → 2025-07-27 12:15 | Outpatient (BNV) | payer OTHER, SELFPAY | PROVIDERS: PCP Physician Assistant; Visit Provider Radiology Body Imaging | DX: Z12.31 Encounter for screening mammogram for malignant neoplasm of breast (principal) | CPT/HCPCS: 77063; 77067 ==

== ENCOUNTER 2025-09-05 22:53 | Emergency (ER) | payer OTHER, SELFPAY ==
--- NOTE | 2025-09-05 | ECG_ITS ---
Test Reason : OD Blood Pressure : */* mmHG Vent. Rate : 94 BPM Atrial Rate : 94 BPM P-R Int : 140 ms QRS Dur : 96 ms QT Int : 368 ms P-R-T Axes : 19 20 -21 degrees QTcB Int : 460 ms Normal sinus rhythm [address] & T wave abnormality, consider inferior ischemia Prolonged QT Abnormal ECG No previous ECGs available Referred By: Generic ED Physician Electronically Signed By: DONATO ASTUDILLO MD
[2025-09-05 22:58] VITALS: BP 150/73; PULSE 93; O2SAT 96
[2025-09-05 23:04] VITALS: BMI 36.6
[2025-09-05 23:22] VITALS: BP 127/83; PULSE 93; RESP 18; O2SAT 97
--- OUTSIDE RECORDS SUMMARY | 2025-09-06 00:12 | XMS_ITS | Clinical Summary ---
Author Organization [facility] Address [address] [place] [address] Phone Care Team Providers Care Insole Beveler Name Role Phone Unknown, Unknown Primary Care [...] PPO [employer] PPO UNITED PPO [employer] PPO [place] [employer] [place] ([place] [address], [place] [address] [place] PPO [place] PPO [facility] [address] [place] [address] [facility] INSURANCE Care Teams Insole Beveler Relationship Specialty Start Date End Date Unknown, Unknown, PCP - General 09/12/20 Additional Source Comments The information contained in this document represents components of the legal health record. It is not the complete legal health record.[facility]
--- OUTSIDE RECORDS SUMMARY | 2025-09-06 00:12 | XMS_ITS | Encounter Summary ---
Author Organization [facility] Address [address] [address] Phone Care Team Providers Care Gizzard Skin Remover Name Role Phone Unknown, Unknown Primary Care Provider Zen serra Encounter Details Date Type Department Care Team (Late st Contact Info) Description 11/23/2021 Procedure [facility] [address] [place] [address] Social History Tobacco Use Types Packs/Day Years [...] on filedocumented in this encounter Care Teams Gizzard Skin Remover Relationship Specialty Start Date End Date Unknown, Unknown, PCP - General 09/12/20 documented as of this encounter Additional Source Comments The information contained in this document represents components of the legal health record. It is not the complete legal health record.[facility]
--- NOTE | 2025-09-06 00:38 | ED_ITS ---
HPI - Overdose General Chief Complaint: Overdose Stated Complaint: 250ml Benadryl SI attempt, woozy needs eval Time Seen by Provider: 09/05/25 23:25 Source: patient, family and RN notes reviewed Mode of arrival: EMS Limitations: no limitations History of Present Illness ED Provider: Dr. Nichole Acevedo HPI Narrative: Patient reports ingesting four tablets of diphenhydramine (50 mg each per patient report) earlier this evening in an attempt to treat a headache, thinking the pills were actually ibuprofen. Time of ingestion was not clearly recalled. She also admits alcohol use today. She was diagnosed with COVID-19 a couple of weeks ago but denies any ongoing COVID-related symptoms. Since the ingestion she continues to have a headache and feels ?weird,? but denies nausea, vomiting, di arrhea, or fever in the last 24 hours. No additional medications or substances were taken. Past medical history notable for well-controlled asthma. No known medication allergies were reported. Related Data Home Medications ?Medication ?Instructions ?Recorded ?Confirmed No Known Home Meds 02/07/21 05/26/24 Allergies Allergy/AdvReac Type Severity Reaction Status Date / Time Codeine Allergy Unknown rash Uncoded 09/05/25 23:06 [facility] Past Medical History Medical History (Updated 09/07/25 @ 00:00 by Migdalia Sanchez) Perimenopause Abnormal uterine bleeding (AUB) Fatigue Asthma Surgical History H/O wisdom tooth extraction Family History Family History Mother HTN (hypertension) Social History Social History Alcohol intake: current Alcohol intake frequency: a few times a month Patient Tobacco Use Status: Never used Tobacco Advance Directives: No Advance Directives Information Provided: Yes Gender identity: Female Physical Exam Vital Signs: Vital Signs: Last Vital Signs Temp 97.6 F 09/06/25 00:48 Pulse 90 09/06/25 00:48 Resp 15 09/06/25 00:48 BP 153/81 H 09/06/25 00:48 Pulse Ox 93 09/06/25 00:48 O2 Del Method Room Air 09/06/25 00:48 BMI result Body Mass Index 36.6 Medical Decision Making Medical Decision Making MDM Narrative: Patient presents with a chief complaint of possible overdose. Diphenhydramine ingestion of ~200 mg with mild anticholinergic effects (headache, dysphonia) and concurrent alcohol use. No evidence of significant toxicity on current evaluation (normal EKG). Differential diagnosis includes life-threatening toxidrome such as anticholinergic syndrome, serotonin syndrome, sympathomimetic, opioid induced, sedative hypnotic, among others. Also includes co-ingestions, acidosis, intracranial process such as mass, hemorrhage, or CVA. Patient evaluated to determine if there is adequate GCS to maintain their airway as well as for hemodynamic stability. Placed on awake overnight monitor for blood pressure, heart rhythm and oxygen levels. Frequent reevaluations to ensure no worsening neurologic or hemodynamic instability. Problem #1: Diphenhydramine ingestion (200 mg) Assessment: Mild ingestion without signs of arrhythmia or severe anticholinergic toxicity. Normal EKG obtained. Plan: - Symptomatic management; encourage aggressive oral hydration. - Provided detailed education on diphenhydramine side-effects, including anticholinergic toxicity (dry mouth, urinary retention, constipation, feeling loopy or wacky ), and dementia risk with chronic use. - Advised patient to discard remaining Benadryl at home. - Return precautions: immediately return to ED for fever, worsening headache, stiff neck, new neurologic symptoms, or any concerning change. Problem #2: Headache Assessment: Headache temporally associated with diphenhydramine and alcohol use. Plan: - Bxka-zmu-vzrgftl analgesia as needed (e.g., ibuprofen) ? patient declined additional medication while in ED. - Monitor at home; increase oral fluids. - Return for persistent or worsening pain, focal neurologic deficits, or any new concerning features. Additional counseling: Discussed high community prevalence of influenza and ongoing COVID-19 activity; advised patient to seek testing if new respiratory or systemic symptoms arise. Using shared decision making, plan for discharge home to follow-up with primary care and/or specialist.? Patient understands and agrees with plan for discharge.? Discharged home in stable condition. Differential Diagnosis Differential Diagnoses: The differential diagnosis associated with the presentation includes (as above) Admission/Observation Consideration of admission/observation: Escalation of care including admission/observation considered Independent Interpretation I performed an independent interpretation of an: EKG Independent Historian Clinical information obtained from an independent historian. History obtained from or confirmed by: Spouse and EMS External Record Review External record reviewed: Inpatient record Discharge Plan Discharge Clinical Impression: Accidental medication overdose Patient Disposition: Home, Self-Care Instructions: Adult Overdose (ED) Additional Instructions: Try to force your fluids over the next several days. Drink plenty of water and rest as much as possible. Benadryl is a dangerous drug to overdose on however, the amount that you took today is not significant enough to cause any serious side effects. That being said, you should avoid taking it in the future. There are much better drugs on the market such as Zyrtec or Claritin for allergy symptoms. Return to the emergency department with any new or worsening symptoms including: Fevers greater than 100?, stiff neck, severe headaches, inability to tolerate food or drink, any new symptom that concerns you. Call 911 with any medical emergency. Prescriptions: No Action No Known Home Meds Interventions: ED Discharge Assessment Last Done: 09/06/25 00:48 Discharge Date/Time: 09/06/25 00:55 Print Language: [place]
[2025-09-06 00:47] VITALS: BP 153/81; PULSE 90; RESP 15; TEMP 36.4; O2SAT 93
[2025-09-06 00:48] VITALS: BP 153/81; PULSE 90; RESP 15; TEMP 36.4; O2SAT 93
== END 2025-09-06 00:55 | disposition home or self-care (01) ==
PROVIDERS: Emergency Provider Emergency Medicine; PCP Physician Assistant
DX: T45.0X1A Poisoning by antiallergic and antiemetic drugs, accidental (unintentional), initial encounter (principal); R51.9 Headache, unspecified; Y92.009 Unspecified place in unspecified non-institutional (private) residence as the place of occurrence of the external cause
CPT/HCPCS: 93005; 99283; 99284

== ENCOUNTER → 2025-09-05 23:09 | Outpatient (BNV) | payer OTHER, SELFPAY | PROVIDERS: Emergency Provider Emergency Medicine; PCP Physician Assistant; Visit Provider Internal Medicine Cardiovascular Disease | DX: R94.31 Abnormal electrocardiogram [ECG] [EKG] (principal); T50.901A Poisoning by unspecified drugs, medicaments and biological substances, accidental (unintentional), initial encounter | CPT/HCPCS: 93010 ==